=== PATIENT | female | born 1995 ===

== ENCOUNTER 2019-07-06 16:49 | Inpatient (IN) | payer BC ==
[2019-07-06] MEDS ORDERED: Nalbuphine 10 MG/1 ML Vial IVPUSH PRN (17:24)
[2019-07-06] MEDS ORDERED: Sodium Chloride 0.9% 10 ML Syringe FLUSH PRN (17:24)
[2019-07-06] MEDS ORDERED: Butorphanol 1 MG/ML SDV IVPUSH PRN (17:24)
[2019-07-06] MEDS ORDERED: Water For Irrigation,Sterile 1,000 ML Container IRR PRN (17:24)
[2019-07-06] MEDS ORDERED: Ondansetron 4 MG/2 ML SDV IVPUSH PRN (17:24)
[2019-07-06] MEDS ORDERED: Methylergonovine 0.2 MG/1 ML Amp IM PRN (17:24)
[2019-07-06] MEDS ORDERED: Lidocaine 1% 50 ML MDV INJECT PRN (17:24)
[2019-07-06] MEDS ORDERED: Tranexamic Acid 1,000 MG in Sodium Chloride 0.9% 100 ML IV PRN (17:24)
[2019-07-06] MEDS ORDERED: Misoprostol 200 MCG Tab PO PRN (17:24)
[2019-07-06] MEDS ORDERED: Sodium Chloride 0.9% 10 ML SDV IV PRN (17:24)
[2019-07-06] MEDS ORDERED: Sodium Chloride 0.9% 2.5 ML Syringe FLUSH PRN (17:24)
[2019-07-06] MEDS ORDERED: Carboprost Tromethamine 250 MCG/1 ML Amp IM PRN (17:24)
[2019-07-06] MEDS ORDERED: Oxytocin/0.9 % Sodium Chloride 30 UNIT/500 ML BAG IV SCH (17:30)
--- NOTE | 2019-07-06 18:44 | PCM.LDHP ---
L&D History of Present Illness - General Date of Service: 07/06/19 Admit Problem/Dx: Patient Status Order with Admit Dx/Problem 07/06/19 17:24 Patient Status [ADT] Routine Admission Diagnosis/Problem Admission Diagnosis/Problem 07/06/19 18:37 24yo EDC 06/28/2019 41 1/7wks O+, RI, GBS neg. Active labor Source of Information: Patient History Limitations: Reports: No Limitations - History of Present Illness Improves with: Reports: None Worsens with: Reports: None Associated Symptoms: Reports: N - Related Data Allergies/Adverse Reactions: Allergies Allergy/AdvReac Type Severity Reaction Status Date / Time No Known Allergies Allergy Verified 07/03/19 14:23 Home Medications: Home Meds . [No Known Home Meds] 07/03/19 [History] H&P Review of Systems - Review of Systems: Review Of Systems: See Below General: Reports: No Symptoms HEENT: Reports: No Symptoms Pulmonary: Reports: No Symptoms Cardiovascular: Reports: No Symptoms Gastrointestinal: Reports: No Symptoms Genitourinary: Reports: No Symptoms Musculoskeletal: Reports: No Symptoms Skin: Reports: No Symptoms Psychiatric: Reports: No Symptoms Neurological: Reports: No Symptoms Hematologic/Lymphatic: Reports: No Symptoms Immunologic: Reports: No Symptoms L&D Exam - Exam Exam: See Below - Vital Signs Weight: 99.79 kg - OB Specific Contraction Intensity: Strong Movement: Active Heart Tones: Present Heart Tones per Min: 135 Heart Rate (FHR) Variability: Moderate (6-25 bmp) Presentation: Vertex - Odom Score Odom Score Cervix Position: Midposition Odom Score Consistency: Soft Odom Score Effacement: >80% Odom Score Dilation: > 5 cm Odom Score Infant's Station: -2 Odom Score Total: 10 - Exam General: Alert, Oriented, Cooperative HEENT: Hearing Intact Lungs: Normal Respiratory Effort GI/Abdominal Exam: Soft, Non-Tender Rectal Exam: Deferred Genitourinary: Normal external exam, Normal bimanual exam, Cervical dilitation. No: Cervical fluid, Vaginal bleeding Back Exam: Normal Inspection, Full Range of Motion Extremities: Normal Inspection, Non-Tender Skin: Warm, Dry, Intact Neurological: Cranial Nerves Intact, Strength Equal Bilateral, Normal Gait, Normal Speech, Normal Tone, Sensation Intact Psychiatric: Alert, Normal Affect, Normal Mood - Patient Data Lab Results Last 24 hrs: Laboratory Results - last 24 hr 07/06/19 Range/Units 17:50 WBC 10.00 (4.0-11.0) K/uL RBC 4.53 (4.30-5.90) M/uL Hgb 11.5 L (12.0-16.0) g/dL Hct 36.3 (36.0-46.0) % MCV 80.1 (80.0-98.0) fL MCH 25.4 L (27.0-32.0) pg MCHC 31.7 (31.0-37.0) g/dL RDW Std Deviation 40.7 (28.0-62.0) fl RDW Coeff of Tony 14 (11.0-15.0) % Plt Count 232 (150-400) K/uL MPV 11.70 (7.40-12.00) fL Nucleated RBC % 0.0 /100WBC Nucleated RBCs # 0 K/uL Result Diagrams: 07/06/19 17:50 - Problem List (1) Supervision of normal IUP (intrauterine ) in primigravida SNOMED Code(s): 45823535, 417582946, 198729647, 511471700 ICD Code: Z34.00 - ENCNTR FOR SUPRVSN OF NORMAL FIRST , UNSP TRIMESTER Status: Acute Priority: High Current Visit: Yes Qualifiers: Trimester: third trimester Qualified Code(s): Z34.03 - Encounter for supervision of normal first , third trimester (2) Post-dates SNOMED Code(s): 70622584 ICD Code: O48.0 - POST-TERM Status: Acute Priority: High Current Visit: Yes Qualifiers: Post-term type: 40-42 weeks gestation Qualified Code(s): O48.0 - Post-term Problem List Initiated/Reviewed/Updated: Yes Orders Last 24hrs: Active Orders 24 hr Category Date Time Status Patient Status [ADT] Routine ADT 07/06/19 17:24 Active Heart Tones [RC] CONTINUOUS Care 07/06/19 17:24 Active Non Stress Test [RC] PER UNIT ROUTINE Care 07/06/19 17:24 Active May Shower [RC] ASDIRECTED Care 07/06/19 17:24 Active Notify Provider [RC] PRN Care 07/06/19 17:24 Active Up ad Padmaja [RC] ASDIRECTED Care 07/06/19 17:24 Active Vaginal Exam [RC] PRN Care 07/06/19 17:24 Active Vital Signs [RC] PER UNIT ROUTINE Care 07/06/19 17:24 Active Regular Diet [DIET] Diet 07/06/19 Dinner Active RAPID PLASMA REAGIN, QUANT [REF] Routine Lab 07/06/19 17:50 Received TYPE AND SCREEN [BBK] Routine Lab 07/06/19 17:50 Received Butorphanol [Stadol] Med 07/06/19 17:24 Active 1 mg IVPUSH Q1H PRN Carboprost Tromethamine [Hemabate DS] Med 07/06/19 17:24 Active 250 mcg IM ASDIRECTED PRN Lactated Ringers [Ringers, Lactated] 1,000 ml Med 07/06/19 17:30 Active IV ASDIRECTED Lidocaine 1% [Xylocaine 1%] Med 07/06/19 17:24 Active 50 ml INJECT ONETIME PRN Methylergonovine [Methergine] Med 07/06/19 17:24 Active 0.2 mg IM ASDIRECTED PRN Nalbuphine [Nubain] Med 07/06/19 17:24 Active 10 mg IVPUSH Q1H PRN Ondansetron [Zofran] Med 07/06/19 17:24 Active 4 mg IVPUSH Q4H PRN Oxytocin/0.9 % Sodium Chloride [Oxytocin 30 Unit/500 ML Med 07/06/19 17:30 Active -NS] 30 unit in 500 ml IV TITRATE Sodium Chloride 0.9% [Normal Saline] Med 07/06/19 17:24 Active 10 ml IV ASDIRECTED PRN Sodium Chloride 0.9% [Saline Flush] Med 07/06/19 17:24 Active 10 ml FLUSH ASDIRECTED PRN Sodium Chloride 0.9% [Saline Flush] Med 07/06/19 17:24 Active 2.5 ml FLUSH ASDIRECTED PRN Tranexamic Acid [Cyklokapron] 1,000 mg Med 07/06/19 17:24 Active Sodium Chloride 0.9% [Normal Saline] 100 ml IV ONETIME Water For Irrigation,Sterile [Sterile Water for Med 07/06/19 17:24 Active Irrigation] 1,000 ml IRR ASDIRECTED PRN miSOPROStoL [Cytotec] Med 07/06/19 17:24 Active 200 mcg PO ONETIME PRN Scalp Electrode [WOMSER] Per Unit Routine Oth 07/06/19 17:24 Ordered Peripheral IV Insertion Adult [OM.PC] Routine Oth 07/06/19 17:24 Ordered Resuscitation Status Routine Resus Stat 07/06/19 17:24 Ordered Medication Orders Butorphanol Tartrate (Stadol) 1 mg IVPUSH Q1H PRN PRN Reason: Pain Carboprost Tromethamine (Hemabate Ds) 250 mcg IM ASDIRECTED PRN PRN Reason: Post Hemorrhage Lactated Ringer's (Ringers, Lactated) 1,000 mls @ 150 mls/hr IV ASDIRECTED JACE Oxytocin/Sodium Chloride (Oxytocin 30 Unit/500 Ml-Ns) 30 unit in 500 mls @ 555 mls/hr IV TITRATE JACE Tranexamic Acid 1,000 mg/ (Sodium Chloride) 110 mls @ 660 mls/hr IV ONETIME PRN PRN Reason: Bleeding Lidocaine HCl (Xylocaine 1%) 50 ml INJECT ONETIME PRN PRN Reason: Laceration repair Methylergonovine Maleate (Methergine) 0.2 mg IM ASDIRECTED PRN PRN Reason: Post Hemorrhage Misoprostol (Cytotec) 200 mcg PO ONETIME PRN PRN Reason: Post Hemorrhage Nalbuphine HCl (Nubain) 10 mg IVPUSH Q1H PRN PRN Reason: Pain (severe 7-10) Ondansetron HCl (Zofran) 4 mg IVPUSH Q4H PRN PRN Reason: Nausea/Vomiting Sodium Chloride (Saline Flush) 10 ml FLUSH ASDIRECTED PRN PRN Reason: Keep Vein Open Sodium Chloride (Saline Flush) 2.5 ml FLUSH ASDIRECTED PRN PRN Reason: Keep Vein Open Sodium Chloride (Normal Saline) 10 ml IV ASDIRECTED PRN PRN Reason: IV Use Sterile Water (Sterile Water For Irrigation) 1,000 ml IRR ASDIRECTED PRN PRN Reason: delivery Assessment/Plan Comment:: Labor A: 24yo EDC 06/28/2019 41 1/7wks O+, RI, GBS neg. Active labor P: Admit, pain meds prn, anticipate , Dr lou updated
[2019-07-07] MEDS: Lactated Ringers 1,000 ML IV SCH ×2 (03:40→04:29)
[2019-07-07] MEDS ORDERED: fentaNYL 100 MCG/2 ML SDV ONE (04:02)
[2019-07-07] MEDS ORDERED: Ropivacaine HCl/PF 100 ML ONE (04:02)
--- NOTE | 2019-07-07 04:23 | PCM.PREANE ---
Preanesthetic Assessment - Anesthesia/Transfusion/Family Hx Anesthesia History: No Prior Anesthesia Family History of Anesthesia Reaction: No Transfusion History: No Prior Transfusion(s) - Physical Assessment NPO Status Date: 07/07/19 NPO Status Time: 02:00 Height: 1.73 m Weight: 99.79 kg ASA Class: 1 - Lab Values: Laboratory Last Values WBC 10.00 K/uL (4.0-11.0) 07/06/19 17:50 RBC 4.53 M/uL (4.30-5.90) 07/06/19 17:50 Hgb 11.5 g/dL (12.0-16.0) L 07/06/19 17:50 Hct 36.3 % (36.0-46.0) 07/06/19 17:50 MCV 80.1 fL (80.0-98.0) 07/06/19 17:50 MCH 25.4 pg (27.0-32.0) L 07/06/19 17:50 MCHC 31.7 g/dL (31.0-37.0) 07/06/19 17:50 RDW Std Deviation 40.7 fl (28.0-62.0) 07/06/19 17:50 RDW Coeff of Otny 14 % (11.0-15.0) 07/06/19 17:50 Plt Count 232 K/uL (150-400) 07/06/19 17:50 MPV 11.70 fL (7.40-12.00) 07/06/19 17:50 Nucleated RBC % 0.0 /100WBC 07/06/19 17:50 Nucleated RBCs # 0 K/uL 07/06/19 17:50 Blood Type O POSITIVE 07/06/19 17:50 Antibody Screen NEGATIVE 07/06/19 17:50 - Allergies Allergies/Adverse Reactions: Allergies Allergy/AdvReac Type Severity Reaction Status Date / Time No Known Allergies Allergy Verified 07/03/19 14:23 - Acknowledgements Anesthesia Type Planned: Epidural Pt an Appropriate Candidate for the Planned Anesthesia: Yes Alternatives and Risks of Anesthesia Discussed w Pt/Guardian: Yes Pt/Guardian Understands and Agrees with Anesthesia Plan: Yes PreAnesthesia Questionnaire - Past Health History Medical/Surgical History: Denies Medical/Surgical History - SUBSTANCE USE Smoking Status *Q: Never Smoker Second Hand Smoke Exposure: No Recreational Drug Use History: No - HOME MEDS Home Medications: Home Meds . [No Known Home Meds] 07/03/19 [History] - CURRENT (IN HOUSE) MEDS Current Meds: Current Medications Butorphanol Tartrate (Stadol) 1 mg IVPUSH Q1H PRN PRN Reason: Pain Carboprost Tromethamine (Hemabate Ds) 250 mcg IM ASDIRECTED PRN PRN Reason: Post Hemorrhage Lactated Ringer's (Ringers, Lactated) 1,000 mls @ 150 mls/hr IV ASDIRECTED JACE Oxytocin/Sodium Chloride (Oxytocin 30 Unit/500 Ml-Ns) 30 unit in 500 mls @ 555 mls/hr IV TITRATE JACE Tranexamic Acid 1,000 mg/ (Sodium Chloride) 110 mls @ 660 mls/hr IV ONETIME PRN PRN Reason: Bleeding Lidocaine HCl (Xylocaine 1%) 50 ml INJECT ONETIME PRN PRN Reason: Laceration repair Methylergonovine Maleate (Methergine) 0.2 mg IM ASDIRECTED PRN PRN Reason: Post Hemorrhage Misoprostol (Cytotec) 200 mcg PO ONETIME PRN PRN Reason: Post Hemorrhage Nalbuphine HCl (Nubain) 10 mg IVPUSH Q1H PRN PRN Reason: Pain (severe 7-10) Ondansetron HCl (Zofran) 4 mg IVPUSH Q4H PRN PRN Reason: Nausea/Vomiting Sodium Chloride (Saline Flush) 10 ml FLUSH ASDIRECTED PRN PRN Reason: Keep Vein Open Sodium Chloride (Saline Flush) 2.5 ml FLUSH ASDIRECTED PRN PRN Reason: Keep Vein Open Sodium Chloride (Normal Saline) 10 ml IV ASDIRECTED PRN PRN Reason: IV Use Sterile Water (Sterile Water For Irrigation) 1,000 ml IRR ASDIRECTED PRN PRN Reason: delivery Discontinued Medications Fentanyl (Sublimaze) Confirm Administered Dose 100 mcg .ROUTE .STK-MED ONE Stop: 07/07/19 04:03 Ropivacaine (Naropin 0.2%) Confirm Administered Dose 100 mls @ as directed .ROUTE .STK-MED ONE Stop: 07/07/19 04:03
--- NOTE | 2019-07-07 04:27 | PCM.PRNOTE ---
- Free Text/Narrative Note: Anes Note Patient requests epidural for L&D> Sitting position, level L3-L4 midline appraoch. Sterile technique. Chloraprep scrub to lumbar area. Sterile fenestrated drape applied. Epidural space easily achieved single attempt with ease using KORINA technique. KORINA at 3 cm. Cath threaded 5 cm with ease. Cath secured at skin at 9 cm using sterile clear adhesive dressing. 0315 Test 3 cc 1.5% lido with epi negative. 0318 Load 10 cc 0.2% ropiv with 1 mcg cc fentanyl added in slow divided doses. 0322 Pump started using 90 cc same solution. Rate is 8 cc hr with door closer bolus of 6 cc q 20 min prn. Pilar well. Patient reports excellent analgesia. Time with patient [id number] Federico Campbell CRNA
[2019-07-07] MEDS ORDERED: Lidocaine 1% 50 ML MDV ONE (09:13)
[2019-07-07] MEDS ORDERED: Docusate Sodium 100 MG Cap PO PRN (09:23)
[2019-07-07] MEDS ORDERED: Ibuprofen 400 MG Tab PO PRN (09:23)
[2019-07-07] MEDS ORDERED: Benzocaine/Menthol 20%-0.5% Spray 78 GM Cannister TOP PRN (09:23)
[2019-07-07] MEDS ORDERED: Bisacodyl 10 MG Supp RECTAL PRN (09:23)
[2019-07-07] MEDS ORDERED: Lanolin 100% Cream 7 GM Tube TOP PRN (09:23)
[2019-07-07] MEDS ORDERED: oxyCODONE 5 MG Tab PO PRN (09:23)
[2019-07-07] MEDS ORDERED: Acetaminophen 500 MG Tab PO PRN ×2 (09:23)
--- NOTE | 2019-07-07 11:10 | OR ---
SURGEON: Wayne Brunner MD DATE OF PROCEDURE: Ms. Yan is a 24-year-old primigravida. She is followed in our clinic primarily by our nurse construction crew member, Kayli Nation. She is 41+ weeks. She is admitted with spontaneous labor. At the time of admission, she was 6 cm, complete, vertex with bulging bag of water. The patient continued to progress spontaneously on her own. She had epidural anesthesia for labor analgesia, and she had spontaneous rupture of membranes. She progressed to complete-complete. I was consulted after the patient had pushed for 2-1/2 hours, and she was exhausted. At the time of my consultation, the patient was complete-complete, +1 to +2, occiput anterior. My estimated weight on the patient was under 9 pounds, and the patient because of maternal exhaustion, she was consented to have a vacuum extraction. heart rate and vital signs at the time I evaluated the patient were within normal limits. After consulting with the patient and explaining the vacuum extraction and the Kiwi vacuum extraction, I informed the patient she may need to have episiotomy. I explained the episiotomy to the patient, and she consented for that if she needed. After placing the Kiwi vacuum extraction with the patient pushing, I was able to bring the fetus to almost . However, the patient needed episiotomy to prevent laceration, so I went ahead and did midline episiotomy and then the fetus was delivered and then the shoulder delivered without any problem. The fetus cried immediately. The resuscitating tractor driver teamster by the boiler room helper was present at the time of the delivery. The score reported to be 8 and 9. Later on, the weight was reported to be 8 pounds 14 ounces. The placenta delivered spontaneous, complete, and intact. The episiotomy was repaired with 3-0 Vicryl in layer without any problem. Estimated blood loss was 300 to 350 mL. heart rate was category 1 through the entire process of labor. There was no complication in the delivery process. BOB / STEVE /[id number]
[2019-07-07] MEDS: Witch Hazel Medicated Pads 40/Jar TOP PRN (11:26)
[2019-07-07] MEDS: Ibuprofen 800 MG Tab PO PRN (11:27)
[2019-07-08] MEDS: Ibuprofen 800 MG Tab PO PRN (02:52)
--- NOTE | 2019-07-08 07:43 | PCM48HPAN ---
Post Anesthesia Note - EVALUATION WITHIN 48HRS OF ANESTHETIC Vital Signs in Normal Range: Yes Patient Participated in Evaluation: Yes Respiratory Function Stable: Yes Airway Patent: Yes Cardiovascular Function Stable: Yes Hydration Status Stable: Yes Pain Control Satisfactory: Yes Nausea and Vomiting Control Satisfactory: Yes Mental Status Recovered: Yes Vital Signs: Last Vital Signs Temp 37.1 C 07/08/19 04:55 Pulse 74 07/08/19 04:55 Resp 18 07/08/19 04:55 BP 116/68 07/08/19 04:55 Pulse Ox 95 07/08/19 04:55
--- NOTE | 2019-07-08 08:31 | PCM.PNPP ---
- General Info Date of Service: 07/08/19 Admission Dx/Problem (Free Text): Patient Status Order with Admit Dx/Problem 07/06/19 17:24 Patient Status [ADT] Routine Admission Diagnosis/Problem Admission Diagnosis/Problem 07/06/19 18:37 24yo EDC 06/28/2019 41 1/7wks O+, RI, GBS neg. Active labor Functional Status: Reports: Pain Controlled, Tolerating Diet, Ambulating, Urinating - Review of Systems General: Reports: No Symptoms HEENT: Reports: No Symptoms Pulmonary: Reports: No Symptoms Cardiovascular: Reports: No Symptoms Gastrointestinal: Reports: No Symptoms Genitourinary: Reports: No Symptoms Musculoskeletal: Reports: No Symptoms Skin: Reports: No Symptoms Neurological: Reports: No Symptoms Psychiatric: Reports: No Symptoms - General Info Date of Service: 07/08/19 - Patient Data Vital Signs - Most Recent: Last Vital Signs Temp 37.1 C 07/08/19 04:55 Pulse 74 07/08/19 04:55 Resp 18 07/08/19 04:55 BP 116/68 07/08/19 04:55 Pulse Ox 95 07/08/19 04:55 Weight - Most Recent: 99.79 kg Med Orders - Current: Current Medications Acetaminophen (Tylenol Extra Strength) 500 mg PO Q4H PRN PRN Reason: Pain Acetaminophen (Tylenol Extra Strength) 1,000 mg PO Q4H PRN PRN Reason: Pain Last Admin: 07/07/19 16:06 Dose: 1,000 mg Benzocaine/Menthol (Dermoplast Pain Relief 20%-0.5% Catherine) 78 gm TOP ASDIRECTED PRN PRN Reason: Perineal Comfort Measure Last Admin: 07/07/19 11:27 Dose: 78 gm Bisacodyl (Dulcolax) 10 mg RECTAL ONETIME PRN PRN Reason: Constipation Docusate Sodium (Colace) 100 mg PO BID PRN PRN Reason: Constipation Emollient Ointment (Lansinoh Hpa) 0 gm TOP ASDIRECTED PRN PRN Reason: Sore Nipples Ibuprofen (Motrin) 400 mg PO Q4H PRN PRN Reason: Pain Ibuprofen (Motrin) 800 mg PO Q6H PRN PRN Reason: Pain Last Admin: 07/08/19 02:52 Dose: 800 mg Oxycodone HCl (Oxycodone) 5 mg PO Q2H PRN PRN Reason: Pain Last Admin: 07/07/19 19:09 Dose: 5 mg Witch Baylee (Tucks) 1 pad TOP ASDIRECTED PRN PRN Reason: comfort care Last Admin: 07/07/19 11:26 Dose: 1 pad Discontinued Medications Butorphanol Tartrate (Stadol) 1 mg IVPUSH Q1H PRN PRN Reason: Pain Carboprost Tromethamine (Hemabate Ds) 250 mcg IM ASDIRECTED PRN PRN Reason: Post Hemorrhage Fentanyl (Sublimaze) Confirm Administered Dose 100 mcg .ROUTE .Offsite [facility]-MED ONE Stop: 07/07/19 04:03 Lactated Ringer's (Ringers, Lactated) 1,000 mls @ 150 mls/hr IV ASDIRECTED JACE Last Admin: 07/07/19 04:29 Dose: 150 mls/hr Oxytocin/Sodium Chloride (Oxytocin 30 Unit/500 Ml-Ns) 30 unit in 500 mls @ 555 mls/hr IV TITRATE [facility] Last Admin: 07/07/19 09:20 Dose: 555 mls/hr Tranexamic Acid 1,000 mg/ (Sodium Chloride) 110 mls @ 660 mls/hr IV ONETIME PRN PRN Reason: Bleeding Ropivacaine (Naropin 0.2%) Confirm Administered Dose 100 mls @ as directed .ROUTE .[employer] ONE Stop: 07/07/19 04:03 Lidocaine HCl (Xylocaine 1%) 50 ml INJECT ONETIME PRN PRN Reason: Laceration repair Last Admin: 07/07/19 09:23 Dose: 50 ml Lidocaine HCl (Xylocaine 1%) Confirm Administered Dose 50 ml .ROUTE .Offsite Care Resources-[place] ONE Stop: 07/07/19 09:14 Methylergonovine Maleate (Methergine) 0.2 mg IM ASDIRECTED PRN PRN Reason: Post Hemorrhage Misoprostol (Cytotec) 200 mcg PO ONETIME PRN PRN Reason: Post Hemorrhage Nalbuphine HCl (Nubain) 10 mg IVPUSH Q1H PRN PRN Reason: Pain (severe 7-10) Ondansetron HCl (Zofran) 4 mg IVPUSH Q4H PRN PRN Reason: Nausea/Vomiting Sodium Chloride (Saline Flush) 10 ml FLUSH ASDIRECTED PRN PRN Reason: Keep Vein Open Sodium Chloride (Saline Flush) 2.5 ml FLUSH ASDIRECTED PRN PRN Reason: Keep Vein Open Sodium Chloride (Normal Saline) 10 ml IV ASDIRECTED PRN PRN Reason: IV Use Sterile Water (Sterile Water For Irrigation) 1,000 ml IRR ASDIRECTED PRN PRN Reason: delivery - Interaction Infant Disposition, : in Room with Family Infant Interaction: Holding Feeding: Bottle Fed Infant Support Person: - Recovery Exam Fundal Tone: Firm Fundal Level: 1 Fingerbreadths Below Umbilicus Fundal Placement: Midline Lochia Amount: Scant Lochia Color: Rubra/Red Episiotomy/Laceration: Approximated Bladder Status: Voiding Urinary Elimination: Voided - Exam General: Alert, Oriented, Cooperative, No Acute Distress, Mild Distress Lungs: Normal Respiratory Effort GI/Abdominal Exam: Soft, Non-Tender Extremities: Normal Range of Motion, No Pedal Edema Skin: Warm, Dry, Intact Wound/Incisions: Healing Well, No Drainage. No: Erythema Neurological: No New Focal Deficit, Normal Speech, Normal Tone, Strength Equal Bilateral, Sensation Intact Psy/Mental Status: Alert, Normal Affect, Normal Mood - Problem List & Annotations (1) Supervision of normal IUP (intrauterine ) in primigravida SNOMED Code(s): 21582025, 873387310, 251089768, 066111570 Code(s): Z34.00 - ENCNTR FOR SUPRVSN OF NORMAL FIRST , UNSP TRIMESTER Status: Acute Priority: High Current Visit: Yes Qualifiers: Trimester: third trimester Qualified Code(s): Z34.03 - Encounter for supervision of normal first , third trimester (2) Post-dates SNOMED Code(s): 62494029 Code(s): O48.0 - POST-TERM Status: Acute Priority: High Current Visit: Yes Qualifiers: Post-term type: 40-42 weeks gestation Qualified Code(s): O48.0 - Post-term (3) Vacuum extractor delivery, delivered SNOMED Code(s): 323015233 Code(s): O66.5 - ATTEMPTED APPLICATION OF VACUUM EXTRACTOR AND FORCEPS Status: Acute Priority: High Current Visit: Yes - Problem List Review Problem List Initiated/Reviewed/Updated: Yes - My Orders Last 24 Hours: My Active Orders 07/07/19 09:23 May Shower [RC] ASDIRECTED Up ad Padmaja [RC] ASDIRECTED Vital Signs [RC] PER UNIT ROUTINE Acetaminophen [Tylenol Extra Strength] 1,000 mg PO Q4H PRN Acetaminophen [Tylenol Extra Strength] 500 mg PO Q4H PRN Benzocaine/Menthol [Dermoplast Pain Relief 20%-0.5% Catherine] 78 gm TOP ASDIRECTED PRN Docusate Sodium [Colace] 100 mg PO BID PRN Ibuprofen [Motrin] 400 mg PO Q4H PRN Ibuprofen [Motrin] 800 mg PO Q6H PRN Lanolin [Lansinoh HPA] See Dose Instructions TOP ASDIRECTED PRN Witch Baylee [Tucks] 1 pad TOP ASDIRECTED PRN bisacodyL [Dulcolax] 10 mg RECTAL ONETIME PRN oxyCODONE 5 mg PO Q2H PRN Assess Lochia [WOMSER] Per Unit Routine Assess Uterine Involution [WOMSER] Per Unit Routine Peripheral IV Discontinue [OM.PC] Routine Resuscitation Status Routine 07/07/19 09:24 Patient Status [ADT] Routine 07/07/19 Lunch Regular Diet [DIET] - Plan Plan:: Labor A: 24yo EDC 06/28/2019 41 1/7wks O+, RI, GBS neg. Active labor P: Admit, pain meds prn, anticipate , Dr lou updated PPD#2 A: VSS, AF, lochia small, perineum intact and no edema, breast feeding well. P: Discharge home with . Follow up in 6 weeks for
--- NOTE | 2019-07-08 08:37 | PCM.DCSUM1 ---
Discharge Summary - Hospital Course Free Text/Narrative:: Discharge home with infant Diagnosis: Stroke: No Modified [place] Scale: No Symptoms at All Modified [place] Scale Score: 0 - Discharge Data Discharge Date: 07/08/19 Discharge Disposition: Home, Self-Care 01 Condition: Good - Referral to Home Health Primary Care Physician: Wayne Brunner MD - Discharge Diagnosis/Problem(s) (1) Supervision of normal IUP (intrauterine ) in primigravida SNOMED Code(s): 35310776, 107804303, 737974396, 578517889 ICD Code: Z34.00 - ENCNTR FOR SUPRVSN OF NORMAL FIRST , UNSP TRIMESTER Status: Acute Priority: High Current Visit: Yes Qualifiers: Trimester: third trimester Qualified Code(s): Z34.03 - Encounter for supervision of normal first , third trimester (2) Post-dates SNOMED Code(s): 17989297 ICD Code: O48.0 - POST-TERM Status: Acute Priority: High Current Visit: Yes Qualifiers: Post-term type: 40-42 weeks gestation Qualified Code(s): O48.0 - Post-term (3) Vacuum extractor delivery, delivered SNOMED Code(s): 409460889 ICD Code: O66.5 - ATTEMPTED APPLICATION OF VACUUM EXTRACTOR AND FORCEPS Status: Acute Priority: High Current Visit: Yes - Patient Instructions Diet: Usual Diet as Tolerated Activity: As Tolerated, No Strenuous Activities, Rest and Relax Today Driving: May Drive Today Showering/Bathing: May Shower Notify Provider of: Fever, Increased Pain, Swelling and Redness, Nausea and/or Vomiting Other/Special Instructions: Discharge home with . Follow up in 6 weeks for post . - Discharge Plan *PRESCRIPTION DRUG MONITORING PROGRAM REVIEWED*: Not Applicable *COPY OF PRESCRIPTION DRUG MONITORING REPORT IN PATIENT RAQUEL: Not Applicable Home Medications: Home Meds . [No Known Home Meds] 07/03/19 [History] Oxygen Therapy Mode: Room Air Patient Handouts: Delivery Referrals: [facility] [Outside] Kayli Nation CNM [Mid-] - 08/18/19 1:30 pm - Discharge Summary/Plan Comment DC Time >30 min.: Yes - General Info Date of Service: 01/22/20 Admission Dx/Problem (Free Text: Patient Status Order with Admit Dx/Problem 07/06/19 17:24 Patient Status [ADT] Routine Admission Diagnosis/Problem Admission Diagnosis/Problem 07/06/19 18:37 24yo EDC 06/28/2019 41 1/7wks O+, RI, GBS neg. Active labor Functional Status: Reports: Pain Controlled, Tolerating Diet, Ambulating, Urinating - Review of Systems General: Reports: No Symptoms HEENT: Reports: No Symptoms Pulmonary: Reports: No Symptoms Cardiovascular: Reports: No Symptoms Gastrointestinal: Reports: No Symptoms Genitourinary: Reports: No Symptoms Musculoskeletal: Reports: No Symptoms Skin: Reports: No Symptoms Neurological: Reports: No Symptoms Psychiatric: Reports: No Symptoms - Patient Data Vitals - Most Recent: Last Vital Signs Temp 37.1 C 07/08/19 04:55 Pulse 74 07/08/19 04:55 Resp 18 07/08/19 04:55 BP 116/68 07/08/19 04:55 Pulse Ox 95 07/08/19 04:55 Weight - Most Recent: 99.79 kg Med Orders - Current: Current Medications Acetaminophen (Tylenol Extra Strength) 500 mg PO Q4H PRN PRN Reason: Pain Acetaminophen (Tylenol Extra Strength) 1,000 mg PO Q4H PRN PRN Reason: Pain Last Admin: 07/07/19 16:06 Dose: 1,000 mg Benzocaine/Menthol (Dermoplast Pain Relief 20%-0.5% [place]) 78 gm TOP ASDIRECTED PRN PRN Reason: Perineal Comfort Measure Last Admin: 07/07/19 11:27 Dose: 78 gm Bisacodyl (Dulcolax) 10 mg RECTAL ONETIME PRN PRN Reason: Constipation Docusate Sodium (Colace) 100 mg PO BID PRN PRN Reason: Constipation Emollient Ointment (Lansinoh Hpa) 0 gm TOP ASDIRECTED PRN PRN Reason: Sore Nipples Ibuprofen (Motrin) 400 mg PO Q4H PRN PRN Reason: Pain Ibuprofen (Motrin) 800 mg PO Q6H PRN PRN Reason: Pain Last Admin: 07/08/19 02:52 Dose: 800 mg Oxycodone HCl (Oxycodone) 5 mg PO Q2H PRN PRN Reason: Pain Last Admin: 07/07/19 19:09 Dose: 5 mg Witch Baylee (Tucks) 1 pad TOP ASDIRECTED PRN PRN Reason: comfort care Last Admin: 07/07/19 11:26 Dose: 1 pad Discontinued Medications Butorphanol Tartrate (Stadol) 1 mg IVPUSH Q1H PRN PRN Reason: Pain Carboprost Tromethamine (Hemabate Ds) 250 mcg IM ASDIRECTED PRN PRN Reason: Post Hemorrhage Fentanyl (Sublimaze) Confirm Administered Dose 100 mcg .ROUTE .[facility]-MED ONE Stop: 07/07/19 04:03 Lactated Ringer's (Ringers, Lactated) 1,000 mls @ 150 mls/hr IV ASDIRECTED [facility] Last Admin: 07/07/19 04:29 Dose: 150 mls/hr Oxytocin/Sodium Chloride (Oxytocin 30 Unit/500 Ml-Ns) 30 unit in 500 mls @ 555 mls/hr IV TITRATE [facility] Last Admin: 07/07/19 09:20 Dose: 555 mls/hr Tranexamic Acid 1,000 mg/ (Sodium Chloride) 110 mls @ 660 mls/hr IV ONETIME PRN PRN Reason: Bleeding Ropivacaine (Naropin 0.2%) Confirm Administered Dose 100 mls @ as directed .ROUTE .[employer]-MED ONE Stop: 07/07/19 04:03 Lidocaine HCl (Xylocaine 1%) 50 ml INJECT ONETIME PRN PRN Reason: Laceration repair Last Admin: 07/07/19 09:23 Dose: 50 ml Lidocaine HCl (Xylocaine 1%) Confirm Administered Dose 50 ml .ROUTE .[employer]-MED ONE Stop: 07/07/19 09:14 Methylergonovine Maleate (Methergine) 0.2 mg IM ASDIRECTED PRN PRN Reason: Post Hemorrhage Misoprostol (Cytotec) 200 mcg PO ONETIME PRN PRN Reason: Post Hemorrhage Nalbuphine HCl (Nubain) 10 mg IVPUSH Q1H PRN PRN Reason: Pain (severe 7-10) Ondansetron HCl (Zofran) 4 mg IVPUSH Q4H PRN PRN Reason: Nausea/Vomiting Sodium Chloride (Saline Flush) 10 ml FLUSH ASDIRECTED PRN PRN Reason: Keep Vein Open Sodium Chloride (Saline Flush) 2.5 ml FLUSH ASDIRECTED PRN PRN Reason: Keep Vein Open Sodium Chloride (Normal Saline) 10 ml IV ASDIRECTED PRN PRN Reason: IV Use Sterile Water (Sterile Water For Irrigation) 1,000 ml IRR ASDIRECTED PRN PRN Reason: delivery - Exam General: Reports: Alert, Oriented, Cooperative, No Acute Distress, Mild Distress Lungs: Reports: Normal Respiratory Effort GI/Abdominal Exam: Soft, Non-Tender, No Distention (Female) Exam: Normal External Exam, Vaginal Lesions (with repair) Rectal (Female) Exam: Deferred Back Exam: Reports: Normal Inspection, Full Range of Motion Extremities: Normal Range of Motion, No Pedal Edema Skin: Reports: Warm, Dry, Intact Wound/Incisions: Reports: Healing Well Neurological: Reports: No New Focal Deficit, Normal Gait, Normal Speech, Normal Tone Psy/Mental Status: Reports: Alert, Normal Affect, Normal Mood
[2019-07-08] MEDS: Witch Hazel Medicated Pads 40/Jar TOP PRN (12:33)
== END 2019-07-08 09:35 | disposition home or self-care (01) | DRG 560 ==
LOC: MW.OBCHECK 16:49 → MW.OB 16:49 → MW.OBCHECK 17:23 → MW.OB 17:24 → OBSVTOIN 07-07 09:24 → MW.OB 07-07 12:30
PROVIDERS: ADMIT Obstetrics & Gynecology; ATTEND Obstetrics & Gynecology
PROC: 10D07Z6 Extraction of Products of Conception, Vacuum, Via Natural or Artificial Opening (ICD-10-PCS; principal; 2019-07-07)
PROC: 10907ZC Drainage of Amniotic Fluid, Therapeutic from Products of Conception, Via Natural or Artificial Opening (ICD-10-PCS; 2019-07-07)
PROC: 3E0R3BZ Introduction of Anesthetic Agent into Spinal Canal, Percutaneous Approach (ICD-10-PCS; 2019-07-07)
PROC: 0W8NXZZ Division of Female Perineum, External Approach (ICD-10-PCS; 2019-07-07)
DX: O48.0 Post-term pregnancy (principal); Z3A.41 41 weeks gestation of pregnancy; Z37.0 Single live birth; O77.0 Labor and delivery complicated by meconium in amniotic fluid
CPT/HCPCS: 36415; 59025; 59409; 85027; 86593; 86850; 86900; 86901; A9270-GY; J2001; J2590; J7120